=== PATIENT | male | born 1975 | race Caucasian/White ===

== ENCOUNTER 2020-06-24 16:26 | Emergency (ER) | payer OTHER ==
[~2020-06-24] VITALS: Ht 167.6 cm; Wt 85.7 kg
[2020-06-24] MEDS ORDERED: ASACOL HD800 MG PO (17:04)
[2020-06-24] MEDS ORDERED: FOLIC ACID0.4 MG PO (17:05)
[2020-06-24] MEDS ORDERED: GABAPENTIN300 M2 PO (17:05)
[2020-06-24] MEDS ORDERED: CAMBIA50 MG PO (17:06)
[2020-06-24] MEDS ORDERED: FEXMID7.5 MG PO (17:06)
[2020-06-24] MEDS ORDERED: GAS RELIEF40 MG/0.6 PO (17:06)
== END 2020-06-24 20:09 | disposition home or self-care (01) ==
LOC: ER 16:26
DX: K62.5 Hemorrhage of anus and rectum (principal)